=== PATIENT | female | born 1955 | race Caucasian/White ===

== ENCOUNTER 2019-02-06 11:36 | Inpatient (IN) | payer OTHER ==
--- NOTE | 2019-02-06 12:00 | EDPHY ---
H & P Time Seen by Provider: 02/06/19 12:00 HPI/ROS: CHIEF COMPLAINT: Leg swelling and shortness of breath HISTORY OF PRESENT ILLNESS: Patient is had some chronic leg pain for a long time is on gabapentin cyclobenzaprine and oxycodone and methadone. Increasing left leg swelling for the last 24 hr associated with shortness of breath especially worse with exertion. No fever or chills, no injury or trauma. Normal urination. Symptoms moderate. REVIEW OF SYSTEMS: Eye: no change in vision ENT: no sore throat Cardiac: no chest pain or syncope Pulmonary: No cough or hemoptysis Abdomen: no vomiting, diarrhea, abdominal pain Musculoskeletal: Leg swelling Skin: no rash Neuro: no headache Constitutional: no fever : no urinary symptoms A comprehensive 10 point review of systems is otherwise negative aside from elements mentioned in the history of present illness. PAST MEDICAL HISTORY: Includes chronic leg pain, depression anxiety, CVA Social history: Former smoker, is currently receiving daily methadone General Appearance: Alert and conversant, cooperative. Eyes: No scleral icterus. ENT, Mouth: Normal mucous membranes. Respiratory: Normal respiratory effort, breath sounds equal, lungs are clear to auscultation. Cardiovascular: Regular rate and rhythm. Has intact pulses in both feet. Gastrointestinal: Abdomen is soft and non tender. Neurological: Alert, face symmetric, ambulatory for motor in lower extremities. Sensation decreased but intact to light touch in both legs. Skin: Venous stasis changes bilaterally. Musculoskeletal: Left leg swelling greater than right, mild calf tenderness. Psychiatric: Not agitated. Emergency Department course/MDM: Noted to be tachycardic and hypoxemic. Plan for ultrasound of the leg, chest x- ray, labs to include troponin and D-dimer. 1313: Negative ultrasound per Radiology, elevated D-dimer, CTA discussed and consented. CT per [facility] at 1422 shows extensive right upper lung pneumonia including and nearby spiculated mass but no pulmonary embolism. Possibly postobstructive. Results discussed the patient, blood cultures and admission with IV Levaquin. The potassium 6.0 likely due to hemolysis, lactate less than 2. Smoking Status: Former smoker Constitutional: Initial Vital Signs Temperature (C) 37.6 C 02/06/19 11:41 Heart Rate 104 H 02/06/19 11:41 Respiratory Rate 20 02/06/19 11:41 Blood Pressure 128/86 H 02/06/19 11:41 O2 Sat (%) 89 L 02/06/19 11:41 O2 Delivery Mode Nasal Cannula O2 (L/minute) 3 Allergies/Adverse Reactions: Penicillins Allergy (Unknown, Verified 02/06/19 11:48) Unknown Home Medications: Medication Instructions Recorded Gabapentin 01/07/10 Methadone HCl 01/07/10 Venlafaxine 25MG (*) 02/06/19 oxyCODONE CR 02/06/19 Medical Decision Making - Diagnostics EKG Interpretation: 12-lead EKG interpreted by me; official reading is in computer system. My interpretation is sinus rhythm with left atrial enlargement rate 99. Imaging Results: Imaging Impressions Chest X-Ray 02/06/19 12:07 Impression: Right upper lobe pneumonia. Extremity Venous Study 02/06/19 12:07 Impression: No deep vein thrombosis in the left lower extremity. Results discussed with Dr. Abdulkadir Walker at 12:55 PM. Chest/Thorax CTA 02/06/19 13:00 Impression: 1. Multifocal right pulmonary opacities compatible with pneumonia, underlying malignancy cannot be radiographically excluded. 2. Mediastinal lymphadenopathy may be reactive or metastatic. Given the above findings, further evaluation with short-term follow-up CT, PET/CT, or biopsy is recommended as clinically warranted. 3. Stable right upper lobe pulmonary nodule containing macroscopic fat and calcification suggestive of a hamartoma, however there is cortical association with the first rib suggestive of enostosis or bone origin. This has not significantly changed when compared to CTA neck from 12/31/2005. 4. Right middle lobe/lingular findings suggestive of RELL. 5. No evidence for pulmonary embolic disease. Abdulkadir Walker was notified of these findings by telephone at 2:14 PM on 02/06/2019 Imaging: Discussed imaging studies w/ train caller Radiologist Differential Diagnosis: Differential diagnosis considered for shortness of breath including but not limited to pulmonary infectious process, COPD, asthma, pulmonary embolus and congestive heart failure. Consult/Admit Bed Type: [place] [id number] - Data Points Laboratory Results: Laboratory Results 02/06/19 12:25 02/06/19 12:25 02/06/19 02/06/19 02/06/19 12:34 12:25 12:25 WBC RBC Hgb Hct MCV MCH MCHC RDW Plt Count MPV Neut % (Auto) Lymph % (Auto) [place] % (Auto) Eos % (Auto) Baso % (Auto) Nucleat RBC Rel Count Absolute Neuts (auto) Absolute Lymphs (auto) Absolute Monos (auto) Absolute Eos (auto) Absolute Basos (auto) Absolute Nucleated RBC Immature Gran % Immature Gran # D-Dimer 3.89 ug/mLFEU H ug/mLFEU (0.00-0.50) Sodium 134 mEq/L L mEq/L (135-145) Potassium 6.0 mEq/L H mEq/L (3.5-5.2) Chloride 98 mEq/L mEq/L (97-110) Carbon Dioxide 25 mEq/l mEq/l (22-31) Anion Gap 11 mEq/L mEq/L (6-14) BUN 18 mg/dL mg/dL (7-23) Creatinine 0.7 mg/dL mg/dL (0.6-1.0) Estimated GFR > 60 Glucose 112 mg/dL H mg/dL (70-100) Calcium 9.3 mg/dL mg/dL (8.5-10.4) POC Troponin I 0.04 ng/mL ng/mL (0.00-0.08) Specimen Hemolysis 140 02/06/19 12:25 WBC 12.35 10^3/uL H 10^3/uL (3.80-9.50) RBC 4.60 10^6/uL 10^6/uL (4.18-5.33) Hgb 12.9 g/dL g/dL (12.6-16.3) Hct 40.2 % % (38.0-47.0) MCV 87.4 fL fL (81.5-99.8) MCH 28.0 pg pg (27.9-34.1) MCHC 32.1 g/dL L g/dL (32.4-36.7) RDW 14.8 % % (11.5-15.2) Plt Count 389 10^3/uL 10^3/uL (150-400) MPV 9.5 fL fL (8.7-11.7) Neut % (Auto) 79.4 % H % (39.3-74.2) Lymph % (Auto) 6.5 % L % (15.0-45.0) [place] % (Auto) 10.0 % % (4.5-13.0) Eos % (Auto) 2.4 % % (0.6-7.6) Baso % (Auto) 0.6 % % (0.3-1.7) Nucleat RBC Rel Count 0.0 % % (0.0-0.2) Absolute Neuts (auto) 9.81 10^3/uL H 10^3/uL (1.70-6.50) Absolute Lymphs (auto) 0.80 10^3/uL L 10^3/uL (1.00-3.00) Absolute Monos (auto) 1.23 10^3/uL H 10^3/uL (0.30-0.80) Absolute Eos (auto) 0.30 10^3/uL 10^3/uL (0.03-0.40) Absolute Basos (auto) 0.07 10^3/uL 10^3/uL (0.02-0.10) Absolute Nucleated RBC 0.00 10^3/uL 10^3/uL (0-0.01) Immature Gran % 1.1 % % (0.0-1.1) Immature Gran # 0.14 10^3/uL H 10^3/uL (0.00-0.10) D-Dimer Sodium Potassium Chloride Carbon Dioxide Anion Gap BUN Creatinine Estimated GFR Glucose Calcium POC Troponin I Specimen Hemolysis Medications Given: Levofloxacin/Dextrose (Levaquin 750 Mg (Premix)) 150 mls @ 100 mls/hr IV EDNOW ONE PRN Reason: Protocol Stop: 02/06/19 15:56 Last Admin: 02/06/19 14:57 Dose: 150 mls Discontinued Medications Cyclobenzaprine HCl (Flexeril) 10 mg PO EDNOW ONE Stop: 02/06/19 12:12 Last Admin: 02/06/19 12:50 Dose: 10 mg Sodium Chloride (Ns) 1,700 mls @ 3,400 mls/hr 30 ml/kg infuse over 30 min ( 1700 ml) IV EDNOW ONE PRN Reason: Protocol Stop: 02/06/19 14:56 Last Admin: 02/06/19 14:55 Dose: 1,700 mls Oxycodone HCl (Oxycodone Ir) 10 mg PO EDNOW ONE Stop: 02/06/19 12:12 Last Admin: 02/06/19 12:50 Dose: 10 mg Venlafaxine HCl (Venlafaxine Hcl) 25 mg PO EDNOW ONE Stop: 02/06/19 12:12 Last Admin: 02/06/19 13:38 Dose: 25 mg Point of Care Test Results: Chemistry 02/06/19 12:34 POC Troponin I 0.04 ng/mL ng/mL (0.00-0.08) Departure - Departure Disposition: [facility] Inpatient Acute Clinical Impression: Pneumonia Qualifiers: Pneumonia type: due to unspecified organism Laterality: right Lung location: upper lobe of lung Qualified Code(s): J18.1 - Lobar pneumonia, unspecified organism Condition: Good
[2019-02-06] MEDS ORDERED: CYCLOBENZAPRINE 10 MG TAB PO ONE (12:11)
[2019-02-06] MEDS ORDERED: oxyCODONE IR 5 MG TAB PO ONE (12:11)
[2019-02-06] MEDS ORDERED: VENLAFAXINE HCL 25 MG TAB PO ONE (12:11)
[2019-02-06 12:38] LABS: PLATELET COUNT 389 10^3/uL (150-400)
[2019-02-06] MEDS ORDERED: IOPAMIDOL (ISOVUE-370) 150 ML BTL IV ONE (13:08)
--- NOTE | 2019-02-06 13:13 | CPEKG ---
Test Reason : OPEN Blood Pressure : / mmHG Vent. Rate : 099 BPM Atrial Rate : 099 BPM P-R Int : 167 ms QRS Dur : 076 ms QT Int : 346 ms P-R-T Axes : 058 003 048 degrees QTc Int : 444 ms Sinus rhythm Probable left atrial enlargement Low voltage, precordial leads Confirmed by Abdulkadir Walker ([id number]) on 02/06/2019 1:12:51 PM Referred By: Abdulkadir Walker Confirmed By:Abdulkadir Walker
[2019-02-06] MEDS ORDERED: NS 1,700 ML IV ONE (14:27)
[2019-02-06] MEDS ORDERED: ACETAMINOPHEN 325 MG TAB PO PRN (15:05)
[2019-02-06] MEDS ORDERED: ONDANSETRON DISINTEGRATING 4 MG TAB PO PRN (15:05)
[2019-02-06] MEDS ORDERED: ONDANSETRON 4 MG/2 ML VIAL IVP PRN (15:05)
[2019-02-06] MEDS ORDERED: ALBUTEROL 3 ML DEYVIAL IH PRN (15:05)
[2019-02-06] MEDS ORDERED: NS 1,000 ML IV SCH (15:15)
--- NOTE | 2019-02-06 15:43 | GHP ---
[f rep st] HISTORY AND PHYSICAL DATE OF ADMISSION: 02/06/2019 HISTORY OF PRESENT ILLNESS: The patient is a 63-year-old female with a many pack year smoking histor y and history of stroke in 2005 with memory impairment, who presents to the hospital and found to hav e a right upper lobe pneumonia. When I speak to the patient, she really cannot recall why she came h ere offering a somewhat disjointed story having to do with somebody who she does some gardening with. She denies recent fever, chills, cough, sputum, nausea, vomiting, diarrhea, weight loss, shortness of breath. Again, she returns to stating that since her 2006 stroke, her memory has been poor. She states her legs have been red like this for many years. She is otherwise without complaints. REVIEW OF SYSTEMS: Complete 10-point review of systems conducted and negative except as noted in the HPI. PAST MEDICAL HISTORY: Stroke in 2005 with resulting memory impairment. She had some exposure in the late 80s that led to redness of her legs she says, and she also states she had some bony tumors in er legs. She does have surgical scars here to complete on her left leg. Chronic pain with continuou s narcotic use as an outpatient. ALLERGIES: Penicillins maybe. It sounds like her sisters are allergic to penicillin so she assumes as such. MEDICATIONS: Home medication list: Gabapentin, methadone, oxycodone, venlafaxine. FAMILY HISTORY: Other than occasional cancers unremarkable. SOCIAL HISTORY: Quit smoking in 1999 but has smoked 3 or 4 years in the interim since then. Many pa ck years prior to that. No alcohol. 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 Lives in a trailer in [place] I believe to [place] [facility]. PHYSICAL EXAMINATION: VITAL SIGNS: Temp 37.6, blood pressure 128/86, pulse 104, breathing 20 times a minute, 89% on room air. GENERAL: No acute distress. HEENT: Sclerae anicteric. Oropharynx jessica r. She has glitter in her hair. The glitter is gold. NECK: Supple without lymphadenopathy or JVD. CHEST: Lungs show crackles in the right upper lung field. Otherwise, clear to auscultation with p rolonged expiratory phase without wheezes. ABDOMEN: Soft, nontender, nondistended. HEART: S1, S2, without murmurs. LOWER EXTREMITIES: Show chronic venous stasis changes with erythema with no lymph angitic streaking. There is 1+ edema bilaterally. Calves are nontender. SKIN: Without rash. NEUR OLOGIC: Nonfocal. DIAGNOSTIC DATA: White count 12.3, hematocrit 40, platelets 389,000. She has a left shift. D-dimer is elevated at 4. Sodium 134, potassium 6, chloride 98, bicarb 25, BUN 18, creatinine 0.7. The spe cimen is hemolyzed. Point of care troponin is 0.04. Chest x-ray interpreted by me shows right upper lobe pneumonia. CT of the chest shows right upper lobe pneumonia with air bronchograms. There is a separate but closely situated spiculated lung mass about a centimeter that is concerning for maligna ncy. There is radiology opinion there may be a mass within the infiltrate; I cannot appreciate that. EKG shows sinus tach with normal axis and intervals and no ST or T-wave changes. Lower extremity u ltrasound shows no DVTs. I discussed the case with Dr. Abdulkadir Walker. ASSESSMENT AND PLAN: This is a 63-year-old female presents with pneumonia, concern for postobstructi ve and separate spiculated lung mass. 1. Pneumonia. Treat as community-acquired pneumonia with ceftriaxone and azithromycin. Considered the use of anaerobic coverage; we will hold for now. Possible penicillin allergy noted. I feel comf ortable using ceftriaxone in this setting. 2. Spiculated lung mass. This is almost certainly a lung cancer given her smoking history. The que stion is how to proceed. I have reached out Oncology to help guide this workup is whether she should receive a course of antibiotics followed by a PET scan versus other sort of earlier intervention on the 1 clearly present mass. More to come on this. 3. Chronic venous stasis changes. I suspect she has some pulmonary hypertension on the basis of malachi g disease. We will go ahead and check an echocardiogram. 4. Prolonged expiratory phase. She likely has chronic obstructive pulmonary disease given prolonged smoking history. We will give her some scheduled DuoNebs. 5. 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 As the patient is not a great historian, it is difficult to know what this is all about. We will follow. I do acknowledge the possible presentation of [facility] in this setting. 6. Prophylaxis. Sequential compression devices for now. She may be getting an invasive procedure. DISPOSITION: Inpatient status. /[id number]/MODL
[2019-02-06] MEDS ORDERED: ZOLPIDEM TARTRATE 5 MG TAB PO PRN (16:38)
[2019-02-06] MEDS: oxyCODONE IR 5 MG TAB PO PRN (16:52)
[2019-02-06] MEDS: AZITHROMYCIN IV 500 MG in NS 250 ML IV SCH (16:53)
--- NOTE | 2019-02-06 16:57 | PDMN ---
Medical Necessity Medical necessity: Pt meets inpt criteria per MD order and [facility] M-282, Pneumonia. 63 y/o w/hx smoking and CVA in 2006 admitted w/RUL pneumonia, imaging also shows spiculated lung mass concerning for possible malignancy. SOB , worse w/exertion, leg swelling L>R, tachycardic and hypoxemic requiring 3L O2 , hyperkalemic (K 6.0). Other PMHx includes chronic leg pain, on daily methadone , anxiety/depression. Anticipate>2MN for treatment of pneumonia and further workup for lung mass.
[2019-02-06] MEDS: IPRATROPIUM/ALBUTEROL 3 ML DEYVIAL IH SCH ×2 (17:31→22:28)
[2019-02-06] MEDS: GABAPENTIN 300 MG CAP PO SCH (21:48)
[2019-02-06] MEDS: METHADONE HCL 10 MG TAB PO SCH (21:48)
[2019-02-07 05:33] LABS: PLATELET COUNT 353 10^3/uL (150-400)
[2019-02-07] MEDS: IPRATROPIUM/ALBUTEROL 3 ML DEYVIAL IH SCH ×4 (06:06→21:10)
[2019-02-07] MEDS: GABAPENTIN 300 MG CAP PO SCH ×3 (09:19→20:49)
[2019-02-07] MEDS: METHADONE HCL 10 MG TAB PO SCH ×2 (09:19→20:48)
[2019-02-07] MEDS: VENLAFAXINE XR 150 MG CAP PO SCH (09:19)
[2019-02-07] MEDS: AZITHROMYCIN IV 500 MG in NS 250 ML IV SCH (09:54)
--- NOTE | 2019-02-07 12:22 | ASMTCMCOM ---
CM Note CM Note Notes: Pt admitted for sob, imaging reveals pneumonia and also a lung mass, likely lung ca. She also has a hx of prior cva with memory loss. Pt lives alone but is otherwise independent. No therapies ordered, anticipate pt will dc home when medically stable, CM available for any changes. DC Plan: Independent Date Signed: 02/07/2019 12:21 PM Electronically Signed By:Myriam Navarro RN
--- NOTE | 2019-02-07 13:35 | ECHO ---
[email or web address] [address] Main: [phone] Echocardiography Examination Transthoracic Name: ECTOR TRINIDAD MR#: [id number] Study Date: 02/07/2019 Study Time: 10:57 AM Date of : 1955 Age: 63 year(s) Height: 165.1 cm (65 in.) Weight: 56.7 kg (125 lb.) BSA: 1.62 m2 Gender: Female Examination: Echo Contrast: Image Quality: Adequate Rhythm: Heart Rate: 101 bpm BP: 159 mmHg/77 mmHg Indication: chronic venous stasis Procedure Staff Referring Physician: Telephone Clerks Supervisor: Maryana Diaz [facility] Reading Physician: Roel Cochran MD Requesting Provider: Indication: chronic venous stasis Measurements Chambers AV/MV Label Value Normal Value Label Value Normal Value EF lower range (%) 60 % AR PHT 0.61 s EF upper range (%) 65 % AR PHT 607 ms IVSd, 2D 1 cm (0.6cm - 1.1cm) AR Vmax 3.06 m/s LVDd, 2D 4.6 cm (3.9cm - 5.3cm) AV PGmax 9 mmHg LVDs, 2D 3 cm (2.1cm - 4cm) AV Vmax 1.52 m/s LVEF, 2D 64 % (54% - 74%) RODDY (continuity eq. 1.9 cm2 LVEF, BP 64 % (55% - 70%) Vmax) LVOT PGmax 5 mmHg MR Vena Contracta 0.3 cm LVOT Vmax 1.15 m/s (0.7m/s - 1.1m/s) MV A Vmax 1.24 m/s LVOTd 1.8 cm (1.8cm - 2cm) MV DT 127 ms LVPWd, 2D 0.9 cm MV E' lateral 0.1 m/s RVDd, 2D 3.4 cm (1.9cm - 3.8cm) MV E' mean 0.1 m/s TAPSE 2.2 cm MV E' septal 0.09 m/s LA Volume, BP 48 ml (22ml - 52ml) MV E Vmax 1.12 m/s LADs, 2D 4 cm (2.7cm - 3.8cm) MV E/A 0.9 LAESV index, BP 29.6 ml/m2 MV E/E' lateral 11.4 RA Area 14.9 cm2 MV E/E' mean 11.79 Additional Vessels MV E/E' septal 11.8 (0.45 - 1.25) Label Value Normal Value TV/PV AoAsc 2.6 cm Label Value Normal Value Patient: ECTOR TRINIDAD Study Date: 02/07/2019 Page 1 of 3 10:57 AM AoRoot, 2D 2.9 cm (1.4cm - 2.6cm) RA Pressure 10 mmHg PV PGmax 3 mmHg PV Vmax, Caliper 0.93 m/s (0.6m/s - 0.9m/s) Conclusions Left Ventricle: Left ventricle is normal in size. EF range is estimated at 60 % - 65 %. Grade I Diastolic Dysfunction. Right Ventricle: Right ventricular systolic function is normal. Left Atrium: The left atrium is normal in size. Right Atrium: The right atrium is normal in size. Tricuspid Valve: Trivial tricuspid regurgitation. IVC: The inferior vena cava is mildly dilated. The inferior vena cava is normal in size and course. Findings Left Ventricle: Left ventricle is normal in size. Normal global systolic left ventricular function. EF evaluated by EF (biplane Kang's). The ejection fraction, measured by Simpsons method, is 64 %. EF range is estimated at 60 % - 65 %. Left ventricle wall thickness is normal. Grade I Diastolic Dysfunction. Right Ventricle: Normal size right ventricle. Right ventricular systolic function is normal. Left Atrium: The left atrium is normal in size. Right Atrium: The right atrium is normal in size. Mitral Valve: Mitral valve appears structurally normal. Mild mitral regurgitation. No mitral valve stenosis. There is mild mitral thickening. Aortic Valve: Aortic leaflets are structurally normal. Mild aortic regurgitation is present. There is no aortic stenosis. The aortic valve is probably trileaflet. Tricuspid Valve: Tricuspid valve leaflets are structurally normal. Trivial tricuspid regurgitation. Pulmonary artery pressure cannot be assessed due to inadequate TR signal. Pulmonic Valve: Pulmonic valve is poorly visualized. Aorta: The aortic root size in 2D measures 2.9 cm. The aortic root exhibits normal size. The ascending aorta measures 2.6 cm. Ascending aorta is normal in size. Aorta Measurements Patient: ECTOR TRINIDAD Study Date: 02/07/2019 Page 2 of 3 10:57 AM AoRoot, 2D is 2.9 cm. IVC: The inferior vena cava is mildly dilated. The inferior vena cava is normal in size and course. Pericardium: No pericardial effusion. Exam Details Procedure Ordered: Echo Procedure Status: Routine study Image Quality: Adequate Facility Location: Cardiac Echo 1 (No Signature Object) Patient: ECTOR TRINIDAD Study Date: 02/07/2019 Page 3 of 3 10:57 AM [id number]
--- NOTE | 2019-02-07 16:22 | HOSPPROG ---
Hospitalist Progress Note Assessment/Plan: Bob is a 63 y/o female who presented w pna, and a spiculated lung mass. First encounter, chart reviewed. *PNA -Ceftriaxone and Azithro (02/06) -supportive care -has a positive blood cx showing gram + cocci (curbsided ID -likely a contaminant) *spiculated lung mass -hx of smoking, very concerning for lung ca -patient says she mainly smokes cannibis -spoke w Dr Garcia to get guidance on next imaging, he will see her -reviewed w Bob about this finding *chronic venous stasis -echocardiogram shows nothing acute, has some diastolic dysfunction *likely COPD -duonebs *hx of bony tumors in her legs -she is very vague about this *hx of stroke -says she has some residual memory loss from this Subjective: bob has no complaints. Objective: Vital Signs Temp Pulse Resp BP Pulse Ox 36.7 C 89 16 113/93 H 95 02/07/19 15:08 02/07/19 15:33 02/07/19 15:33 02/07/19 15:08 02/07/19 15:33 Microbiology 02/06/19 14:30 Blood Panel (PCR) - Final Blood No Organism Detected By Pcr Laboratory Results 02/07/19 05:14 02/07/19 05:14 02/06/19 02/07/19 02/08/19 05:59 05:59 05:59 Intake Total 2965 Balance 2965 - Physical Exam Constitutional: chronically ill appearing Eyes: PERRL Ears, Nose, Mouth, Throat: hearing normal Cardiovascular: regular rate and rhythym Respiratory: no respiratory distress, reduced air movement Skin: warm, No normal color (pale) Musculoskeletal: generalized weakness Neurologic: AAOx3 Psychiatric: interacting appropriately, not anxious, poor memory ICD10 Worksheet Patient Problems: Problems Problem Status Onset Pneumonia Acute
[2019-02-07] MEDS: oxyCODONE IR 5 MG TAB PO PRN ×2 (18:40→23:31)
[2019-02-08] MEDS: IPRATROPIUM/ALBUTEROL 3 ML DEYVIAL IH SCH ×4 (05:44→21:46)
[2019-02-08] MEDS: METHADONE HCL 10 MG TAB PO SCH ×2 (08:08→21:58)
[2019-02-08] MEDS: oxyCODONE IR 5 MG TAB PO PRN ×2 (08:09→23:13)
[2019-02-08] MEDS: GABAPENTIN 300 MG CAP PO SCH ×3 (08:09→21:58)
[2019-02-08] MEDS: VENLAFAXINE XR 150 MG CAP PO SCH (08:10)
--- NOTE | 2019-02-08 10:54 | GCON ---
[f rep st] CONSULTATION The patient is a very pleasant 63-year-old female with a long smoking history, who is admitted with a right upper lobe pneumonia. She had a CT scan of the chest on 02/06, which showed multifocal right pulmonary opacities compatible with pneumonia, as well as some mediastinal lymphadenopathy. Mediasti nal adenopathy is described as a dominant precarinal node measuring 2.7 x 1.7 cm and a subcarinal nod e measuring 1.6 x 1.1 cm. In addition, there is a right upper lobe pulmonary nodule containing macro scopic fat and calcifications suggestive of a hamartoma. There is some cortical association with the first rib. This is unchanged since 2005. The patient has been treated with broad-spectrum antibiot ics. PAST MEDICAL HISTORY: Significant for a stroke in 2005, with memory impairment; possible history of bony tumors on her legs; and chronic pain. MEDICATIONS ON ADMISSION: Include gabapentin, methadone, oxycodone and venlafaxine. SOCIAL HISTORY: She has a long smoking history and also smokes cannabis. PHYSICAL EXAMINATION: VITAL SIGNS: Today, vital signs are stable. She is somewhat anorexic. NECK: Without adenopathy. LUNGS: Some crackles in the right upper lungs. CARDIAC: Exam is unremarkabl e. EXTREMITIES: Chronic venous stasis changes with 1+ edema. ABDOMEN: Benign. LABORATORY: Admission white count is 12,000, dropping to 8000 yesterday. Current hemoglobin 10.7, h ematocrit 34.2, platelets 353,000. Basic chemistry panel is unremarkable at this time, although I no te that potassium was high on admission. IMPRESSION: Patient with pneumonia. She has some adenopathy in the mediastinum, which could be reac tive. There are some pulmonary infiltrates consistent with pneumonia, although malignancy cannot be excluded. There is a stable right upper lobe nodule over the last 13 years, which has characteristic s of a hamartoma. I do not think this is worrisome for malignancy. I would suggest a followup CT sc an of the chest 6 to 8 weeks after treatment of her pneumonia to see if these residual changes persis t. Decision regarding further workup could be made at that time. /[id number]/MODL
[2019-02-08] MEDS: AZITHROMYCIN IV 500 MG in NS 250 ML IV SCH (11:18)
[2019-02-08] MEDS ORDERED: IBUPROFEN 600 MG TAB PO ONE (11:29)
--- NOTE | 2019-02-08 13:59 | HOSPPROG ---
Hospitalist Progress Note Assessment/Plan: Daiana is a 63 y/o female who presented w pna, and a spiculated lung mass. Reviewed her care w Dr Garcia. *PNA -Ceftriaxone and Azithro (02/06) -supportive care -has a positive blood cx showing gram + cocci , 2nd bottle also +, will discuss w ID * lung mass -appreciate Dr Garcia -stable right upper lobe nodule over the last 13 years, which has characteristics of a hamartoma -follow up CT scan in 6-8 weeks after she is done being treated for her pna *chronic venous stasis -echocardiogram shows nothing acute, has some diastolic dysfunction -has significant pain in her legs that has been worsening over time, Doppler studies show nothing acute. Will get GIOVANNI studies. 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 *plan: get GIOVANNI studies, ST to see. She will need repeat CT scan in 6-8 weeks Subjective: Daiana is anxious to go home but has some pesistent foot and lower leg pain. Objective: Vital Signs Temp Pulse Resp BP Pulse Ox 36.6 C 99 20 146/72 H 90 L 02/08/19 11:34 02/08/19 11:34 02/08/19 11:34 02/08/19 11:34 02/08/19 11:34 Microbiology 02/06/19 14:30 Blood Panel (PCR) - Final Blood No Organism Detected By Pcr Laboratory Results 02/07/19 05:14 02/07/19 05:14 02/07/19 02/08/19 02/09/19 05:59 05:59 05:59 Intake Total 2965 650 Output Total 450 Balance 2965 200 - Physical Exam Constitutional: appears nourished, chronically ill appearing, uncomfortable Eyes: PERRL Ears, Nose, Mouth, Throat: hearing normal Cardiovascular: regular rate and rhythym Respiratory: no respiratory distress Skin: warm, other (bilateral lower ext with warmth, tender) Musculoskeletal: generalized weakness Neurologic: AAOx3 Psychiatric: interacting appropriately ICD10 Worksheet Patient Problems: Problems Problem Status Onset Pneumonia Acute
[2019-02-08] MEDS: ENOXAPARIN 40 MG/0.4 ML SYR SC SCH (17:58)
[2019-02-09] MEDS: IBUPROFEN 200 MG TAB PO PRN ×2 (02:49→13:46)
[2019-02-09] MEDS: CYCLOBENZAPRINE 10 MG TAB PO PRN ×2 (02:50→16:05)
[2019-02-09] MEDS: IPRATROPIUM/ALBUTEROL 3 ML DEYVIAL IH SCH ×4 (05:23→21:49)
[2019-02-09] MEDS: GABAPENTIN 300 MG CAP PO SCH ×3 (09:59→21:26)
[2019-02-09] MEDS: METHADONE HCL 10 MG TAB PO SCH ×2 (10:00→20:08)
[2019-02-09] MEDS: ENOXAPARIN 40 MG/0.4 ML SYR SC SCH (10:01)
[2019-02-09] MEDS: VENLAFAXINE XR 150 MG CAP PO SCH (10:01)
[2019-02-09] MEDS: AZITHROMYCIN IV 500 MG in NS 250 ML IV SCH (11:29)
[2019-02-09] MEDS: oxyCODONE IR 5 MG TAB PO PRN ×2 (13:42→20:08)
--- NOTE | 2019-02-09 14:26 | HOSPPROG ---
Hospitalist Progress Note Assessment/Plan: Daiana is a 63 y/o female who presented w pna, and a spiculated lung mass. Reviewed her care w Dr Garcia. *PNA -Ceftriaxone and Azithro (02/06) -supportive care -has a positive blood cx showing gram + cocci , 2nd bottle also +, contaminant * lung mass -appreciate Dr Garcia -stable right upper lobe nodule over the last 13 years, which has characteristics of a hamartoma -follow up CT scan in 6-8 weeks after she is done being treated for her pna *chronic venous stasis -echocardiogram shows nothing acute, has some diastolic dysfunction -has significant pain in her legs that has been worsening over time, Doppler studies show nothing acute. 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 Likely dc in the a.m. Subjective: Daiana is feeling better today. Objective: Vital Signs Temp Pulse Resp BP Pulse Ox 36.6 C 92 20 103/86 H 90 L 02/09/19 11:22 02/09/19 11:22 02/09/19 11:22 02/09/19 11:22 02/09/19 11:22 Microbiology 02/06/19 14:30 Blood Panel (PCR) - Final Blood No Organism Detected By Pcr Laboratory Results 02/07/19 05:14 02/07/19 05:14 02/08/19 02/09/19 02/10/19 05:59 05:59 05:59 Intake Total 650 Output Total 450 Balance 200 - Physical Exam Constitutional: no apparent distress, other (thin) Eyes: PERRL Ears, Nose, Mouth, Throat: hearing normal Cardiovascular: regular rate and rhythym Respiratory: no respiratory distress Skin: warm Musculoskeletal: full muscle strength Neurologic: AAOx3 Psychiatric: interacting appropriately ICD10 Worksheet Patient Problems: Problems Problem Status Onset Pneumonia Acute
[2019-02-10] MEDS: oxyCODONE IR 5 MG TAB PO PRN (04:19)
[2019-02-10] MEDS: IPRATROPIUM/ALBUTEROL 3 ML DEYVIAL IH SCH ×2 (06:33→09:48)
[2019-02-10] MEDS: CYCLOBENZAPRINE 10 MG TAB PO PRN (07:38)
[2019-02-10] MEDS: VENLAFAXINE XR 150 MG CAP PO SCH (07:38)
[2019-02-10] MEDS: IBUPROFEN 200 MG TAB PO PRN (07:38)
[2019-02-10] MEDS: GABAPENTIN 300 MG CAP PO SCH (07:38)
[2019-02-10 08:11] VITALS: BP 149/74
[2019-02-10] MEDS: METHADONE HCL 10 MG TAB PO SCH (08:17)
[2019-02-10] MEDS: ENOXAPARIN 40 MG/0.4 ML SYR SC SCH (08:17)
[2019-02-10] MEDS: AZITHROMYCIN IV 500 MG in NS 250 ML IV SCH (10:13)
--- NOTE | 2019-02-10 11:12 | HOSPPROG ---
Hospitalist Progress Note Assessment/Plan: Daiana is a 63 y/o female who presented w pna, and a spiculated lung mass. Reviewed her care w Dr Garcia. *PNA -Ceftriaxone and Azithro (02/06) -supportive care -has a positive blood cx showing gram + cocci , 2nd bottle also +, contaminant * lung mass -appreciate Dr Garcia -stable right upper lobe nodule over the last 13 years, which has characteristics of a hamartoma -follow up CT scan in 6-8 weeks after she is done being treated for her pna *chronic venous stasis -echocardiogram shows nothing acute, has some diastolic dysfunction -has significant pain in her legs that has been worsening over time, Doppler studies show nothing acute. 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 Objective: Vital Signs Temp Pulse Resp BP Pulse Ox 37.4 C 90 14 149/74 H 90 L 02/10/19 08:09 02/10/19 09:50 02/10/19 09:50 02/10/19 08:09 02/10/19 09:50 Microbiology 02/06/19 14:30 Blood Culture - Final Blood Gemella Haemolysans Rothia Mucilaginosa Blood Panel (PCR) - Final No Organism Detected By Pcr Laboratory Results 02/07/19 05:14 02/07/19 05:14 02/09/19 02/10/19 02/11/19 05:59 05:59 05:59 Intake Total 750 Balance 750 - Physical Exam Constitutional: no apparent distress, chronically ill appearing Eyes: PERRL Respiratory: no respiratory distress Skin: warm Musculoskeletal: generalized weakness Neurologic: AAOx3 Psychiatric: interacting appropriately ICD10 Worksheet Patient Problems: Problems Problem Status Onset Pneumonia Acute
--- NOTE | 2019-02-10 18:06 | GDS ---
[f rep st] DISCHARGE SUMMARY DISCHARGE DIAGNOSES: 1. Community-acquired pneumonia. 2. Concern for a lung mass. 3. Chronic venous stasis. 4. Chronic obstructive pulmonary disease. 5. 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 6. History of stroke in 2005. CONSULTATION: Dr. Garcia. BRIEFLY: The patient is a 63-year-old woman who has a long history of smoking and also smokes cannab is, who presented to the emergency room and found to have a right upper lobe pneumonia. She denied a ny recent fever, cough, or chills. She has also said she had some exposure in the late 80s that led to redness of her legs and also states that she has bony tumors in her legs. She noted to have some surgical scars there. She was admitted and had a CTA of her chest because of an elevated D-dimer autumn t showed multifocal right pulmonary opacities compatible with pneumonia. It notes that underlying ma lignancy cannot be radiographically excluded. She also has mediastinal lymphadenopathy, may be react dave or metastatic. She has a stable right upper lobe pulmonary nodule containing macroscopic fat and calcification suggestive of hamartoma, but this has not changed significantly since 2017. Also of n ote, she has a right middle lobe finding suggested of RELL. She has no evidence of pulmonary embolic disease. Subsequently, she was treated with IV antibiotics. Her 1st blood culture grew out gram pos itive cocci in clusters, curb-sided infectious disease, most likely a contaminant. The 2nd blood cul ture showed no growth. Throughout her stay she improved. She also had ongoing complaints of pain to her legs. Workups were done. These are all noted to be stable. I will have her follow up with her primary care doctor at the [place]. HOSPITAL COURSE: 1. Pneumonia. She was treated with ceftriaxone and azithromycin. She will get 2 more days of antib iotics. 2. Lung mass. This was evaluated by Dr. Garcia. She has a stable right upper lobe nodule over the l ast 13 years, which has characteristics of a hamartoma. She needs a followup CT scan 6 to [address] she is done being treated for pneumonia. 3. Chronic venous stasis. Her echocardiogram shows nothing acute, but some diastolic dysfunction. She was having significant pain in her legs that has been ongoing. Dopplers showed no DVT. GIOVANNI stud ies were performed, which noted that she likely has some atherosclerosis on her left leg and some jolene ropathic pain. She has Doppler pulses. 4. COPD, on DuoNeb. 5. History of bony tumor in her legs, unclear to get a very good history on this. [facility] 6. History of a stroke in 2005. She has some residual memory loss from this. She was evaluated by Speech Therapy who noted her cognitive issues were mild. DISCHARGE CONDITION: Stable. Blood pressure is 149/74, heart rate of 90, respiratory rate of 20, O2 sats on room air 94%, temperature 37.4 Celsius. MEDICATIONS AT DISCHARGE: Please see the EMR. DISCHARGE INSTRUCTIONS: 1. To follow up with her primary care provider. She needs to get a repeat CT of her chest. 2. If she develops more than 3 liquidy stools a day, to see her primary care doctor. Greater than 30 minutes discharging and coordinating the patient's care. Copy requested to: Dr. Radha Dexter #: [id number]
== END 2019-02-10 13:58 | disposition home or self-care (01) | DRG 195 ==
LOC: F3E 15:39
PROVIDERS: ADMIT Internal Medicine; ATTEND Internal Medicine
DX: J18.9 Pneumonia, unspecified organism (principal); R91.8 Other nonspecific abnormal finding of lung field; I87.8 Other specified disorders of veins; J44.9 Chronic obstructive pulmonary disease, unspecified; Z86.73 Personal history of transient ischemic attack (TIA), and cerebral infarction without residual deficits; Z87.891 Personal history of nicotine dependence
CPT/HCPCS: 84484-ER; 92523-GN; 96365; 97116-GP; 97161-GP; J0456; J0696; J1650; J1956; J2270; Q9967